=== PATIENT | female | born 1970 | race Two or more races ===

== ENCOUNTER 2024-12-08 14:22 | Inpatient (IN) | payer MEDICAID, OTHER ==
[~2024-12-08] VITALS: Ht 162.6 cm; Wt 68.1 kg
--- NOTE | 2024-12-08 14:46 | ED.PDOC ---
HPI (NEURO) HPI Comments 53-year-old female who presents to the ED for chief complaint of dizziness. Patient states she has been having dizziness with the associated blurred vision for the past three weeks. Patient states she saw PCP one month prior and and states she was told to stay off her feet for the next month and not do any work. Patient now in the ED states she has a history of diabetes and has noted Accu- Chek of 413 and 393. Patient does state she is compliant with her medications. Patient in the ED otherwise is alert and oriented x4 and able to answering all questions. Patient in the ED has not above pressure 159/84 with otherwise stable vitals. Patient otherwise denies any other symptoms. Chief Complaint: Dizziness Time Seen by MD: 14:43 Reviewed Notes: Medications, Allergies Information Source: Patient Mode of Arrival: Ambulatory Past Medical History PAST MEDICAL HISTORY: DM Surgical History: Denies all surgeries MANAGER LEARNING History: Denies all MANAGER LEARNING Hx Family History Family History: Reviewed,noncontributory to illness Social History Smoker: Non-Smoker Alcohol: Denies ETOH Use Drugs: Denies Drug Use Lives In: Home Constitutional: denies: chills, diaphoresis, fatigue, fever, malaise, sweats, weakness, others EENTM: reports: blurred vision; denies: double vision, ear bleeding, ear discharge, ear drainage, ear pain, ear ringing, eye pain, eye redness, hearing loss, mouth pain, mouth swelling, nasal discharge, nose bleeding, nose conges tion, nose pain, photophobia, tearing, throat pain, throat swelling, voice changes, others Respiratory: denies: cough, hemoptysis, orthopnea, SOB at rest, shortness of breath, SOB with excertion, stridor, wheezing, others Cardiovascular: denies: chest pain, dizzy spells, diaphoresis, Dyspnea on exertion, edema, irregular heart beat, left arm pain, lightheadedness, palpitations, PND, syncope, others Gastrointestinal: denies: abdomen distended, abdominal pain, blood streaked bowels, constipated, diarrhea, dysphagia, difficulty swallowing, hematemesis, melena, nausea, poor appetite, poor fluid intake, rectal bleeding, rectal pain, vomiting, others Genitourinary: denies: abnormal vagina bleeding, burning, dyspareunia, dysuria, flank pain, frequency, hematuria, incontinence, pain, , vagina disc harge, urgency, others Neurological: reports: dizziness; denies: fainting, headache, left sided numbness, left sided weakness, numbness, paresthesia, pre-existing deficit, right sided numbness, right sided weakness, seizure, speech problems, tingling, tremors, weakness, others Musculoskeletal: denies: back pain, gout, joint pain, joint swelling, muscle pain, muscle stiffness, neck pain, others Integumetry: denies: bruises, change in color, change in hair/nails, dryness, laceration, lesions, lumps, rash, wounds, others Allergic/Immunocompromised: denies: Difficulty Healing, Frequent Infections, Hives, Itching, others Hematologic/Lymphatic: denies: anemia, blood clots, easy bleeding, easy bruising, swollen glands, others Endocrine: denies: excessive hunger, excessive sweating, excessive thirst, excessive urination, flushing, intolerance to cold, intolerance to heat, unexplained weight gain, unexplained weight loss, others Psychiatric: denies: anxiety, bipolar disorder, depression, hopeless, panic disorder, schizophrenia, sleepless, suicidal, others All Other Systems: Reviewed and Negative Physical Exam General Appearance: Moderate Distress HEENT: Normal ENT Inspection, Pharynx Normal, TMs Normal Neck: Full Range of Motion, Non-Tender, Normal, Normal Inspection Respiratory: Chest Non-Tender, Lungs Clear, No Accessory Muscle Use, No Respiratory Distress, Normal Breath Sounds Cardiovascular: No Edema, No JVD, No Murmur, No Gallop, Normal Peripheral Pulse s, Regular Rate/Rhythm Breast Exam: Deferred Gastrointestinal: No Organomegaly, Non Tender, No Pulsatile Mass, Normal Bowel Sounds, Soft Genitalia: Deferred Pelvic: Deferred Rectal: Deferred Extremities: No calf tenderness, Normal capillary refill, Normal inspection, Normal range of motion, Non-tender, No pedal edema Musculoskeletal : Apperance: Normal 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 Was a procedure done?: No Differential Diagnosis (SZ) Seizure: Psychogenic Seizure, Closed Head Injury, CVA/TIA General Weakness: Anemia, Dehydration, Electrolyte imbalance, Hypotension, Labyrinthitis, Meniere's disease, Vertigo: central, Vertigo: peripheral, V estibular neuronitis, Other (Uncontrolled diabetes, hypertension,) X-Ray, Labs, Meds, VS Vital Signs Date Time Temp Pulse Resp B/P (MAP) Pulse Ox O2 Delivery O2 Flow Rate FiO2 12/08/24 14:36 81 12/08/24 14:23 98.9 86 16 159/84 97 98.9 Lab Test 12/08/24 15:13 Range/Units White Blood Count 6.3 4.4-10.8 10^3/uL Red Blood Count 4.03 4.0-5.20 10^6/uL Hemoglobin 12.7 12.2-16.2 g/dL Hematocrit 37.5 36.0-46.0 % Mean Corpuscular Volume 92.9 80.0-100.0 fL Mean Corpuscular Hemoglobin 31.4 28.0-32.0 pg Mean Corpuscular Hemoglobin Concent 33.8 32.0-36.0 g/dL Red Cell Distribution Width 13.2 11.8-14.3 % Platelet Count 182 140-450 10^3/uL Mean Platelet Volume 11.3 H 6.9-10.8 fL Neutrophils (%) (Auto) 54.4 37.0-80.0 % Lymphocytes (%) (Auto) 38.6 10.0-50.0 % Monocytes (%) (Auto) 4.0 0.0-12.0 % Eosinophils (%) (Auto) 2.5 0.0-7.0 % Basophils (%) (Auto) 0.5 0.0-2.0 % Neutrophils # (Auto) 3.4 1.6-8.6 10 ^3/uL Lymphocytes # (Auto) 2.4 0.4-5.4 10 ^3/uL Monocytes # (Auto) 0.2 0-1.3 10 ^3/uL Eosinophils # (Auto) 0.2 0-0.8 10 ^3/uL Basophils # (Auto) 0 0-0.2 10 ^3/uL Nucleated Red Blood Cells 0.1 % Sodium Level 137 136-145 mmol/L Potassium Level 4.3 3.5-5.1 mmol/L Chloride Level 100 98-107 mmol/L Carbon Dioxide Level 31 20-31 mmol/L Anion Gap 6 5-15 Blood Urea Nitrogen 19 9-23 mg/dL Creatinine 0.68 0.550-1.02 mg/dL Glomerular Filtration Rate Calc 105 >90 mL/min BUN/Creatinine Ratio 27.9 H 10.0-20.0 Serum Glucose 385 H 74-106 mg/dL Calcium Level 9.9 8.7-10.4 mg/dL Current Medications Medications (Trade) Dose Ordered Sig/Antonio Route Start Time Stop Time Status Last Admin Sodium Chloride 1,000 ml @ 1,000 mls/hr Q1H ONCE IV 12/08/24 15:00 12/08/24 15:59 DC 12/08/24 15:28 Patient alert. Complaining of dizziness. Vitals stable. Answering questions. Serum glucose elevated. Establish intravenous access. Was given fluids. Was given insulin. WBC within normal limits. Hemoglobin within normal limits. Blood pressure slightly elevated. Possibly need MRI. Explained to the patient. Continue monitoring. Time of 1ST Reevaluation: 15:15 Reevaluation 1ST: Unchanged Patient Education/Counseling: Diagnosis, Treatment Family Education/Counseling: No Family Present Departure 1 Departure Time of Disposition: 17:12 Impression: Primary Impression: Autonomic disorder Additional Impressions: HTN (hypertension) Qualified Codes: I10 - Essential (primary) hypertension Uncontrolled diabetes mellitus Qualified Codes: E13.65 - Other specified diabetes mellitus with hyperglycemia Disposition: ADMITTED INPATIENT Admit to: Med Surg Condition: Guarded Critical Care Note Critical Care Time?: No Stability Stability form required: No Heart Score Heart Score: Heart Score Response (Comments) Value History N/A 0 EKG N/A 0 Age N/A 0 Risk Factors N/A 0 Troponin N/A 0 Total 0 I personally scribed for ANKIT HUBER MD ([email or web address]) on 12/08/24 at 14:46. Electronically submitted by Allison Garcia ([email or web address]). ANKIT HUBER MD Dec 08, 2024 14:46
[2024-12-08] MEDS: SODIUM CHLORIDE 0.9% 1,000 ML IV ONE ×2 (15:28→21:30)
[2024-12-08 15:30] LABS: Hematocrit 37.5 % (36.0-46.0); Hemoglobin 12.7 g/dL (12.2-16.2); Mean Corpuscular Hemoglobin 31.4 pg (28.0-32.0); Mean Corpuscular Volume 92.9 fL (80.0-100.0); Nucleated Red Blood Cells % 0.1 %
[2024-12-08 15:36] LABS: Chloride 100 mmol/L (98-107); Potassium 4.3 mmol/L (3.5-5.1); Sodium 137 mmol/L (136-145)
[2024-12-08 15:37] LABS: Anion Gap 6 (5-15); Calcium 9.9 mg/dL (8.7-10.4); Carbon Dioxide 31 mmol/L (20-31)
[2024-12-08 15:42] LABS: BUN/Creatinine Ratio 27.9 (10.0-20.0); Blood Urea Nitrogen 19 mg/dL (9-23)
[2024-12-08 15:43] LABS: Glucose 385 mg/dL (74-106)
--- NOTE | 2024-12-08 16:48 | ECG ---
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
--- NOTE | 2024-12-08 17:39 | DVH ---
CLINICAL HISTORY: dizzy TECHNIQUE: Helical scanning was performed of the head from the skull base to the vertex. Multiplanar reconstructions were performed. This exam was performed according to our departmental dose optimizat ion program. Up-to-date CT equipment and radiation dose reduction techniques are utilized as appropri ate. CTDI 57 DLP 1015 COMPARISON: None FINDINGS: There is no evidence for acute intracranial hemorrhage, acute ischemic changes, mass, mass effect, or extra-axial fluid collection. There is no hydrocephalus or midline shift. There is no effacement of the cerebral sulci and basal subarachnoid cisterns. The tilley-white matter differentiation is well savanah ntained. The imaged paranasal sinuses are clear. There has been bilateral cataract extraction. IMPRESSION: NO ACUTE INTRACRANIAL ABNORMALITY SEEN.
[2024-12-08 18:05] LABS: Urine Protein, UAD Negative (Negative)
[2024-12-08] MEDS ORDERED: ACETAMINOPHEN 325 MG TAB PO PRN (21:30)
[2024-12-08] MEDS ORDERED: ONDANSETRON HCL 4 MG/2 ML VIAL IV PRN (21:30)
[2024-12-08] MEDS ORDERED: DEXTROSE (50%) 50ML SYRG IV PRN (21:30)
--- NOTE | 2024-12-08 22:29 | DVH ---
CHEST RADIOGRAPH Indication: chest pain Technique: 1 view Comparison: None FINDINGS: Lines and Tubes: None. Lungs/Pleura: No focal consolidation, pleural effusion or pneumothorax. Cardiomediastinum: Normal heart size. Right hilar calcifications. Other: No acute osseous abnormality. IMPRESSION: 1. No acute cardiopulmonary abnormality.
[2024-12-08 22:33] LABS: Alanine Aminotransferase 28 U/L (7-40); Albumin 4.3 g/dL (3.2-4.8); Alkaline Phosphatase 83 U/L (46-116); Magnesium 1.9 mg/dL (1.6-2.6); Total Protein 7.5 g/dL (5.7-8.2)
[2024-12-08 22:34] LABS: Bilirubin, Total 0.5 mg/dL (0.2-1.0); HDL Cholesterol 50 mg/dL (40-59)
[2024-12-08 22:36] LABS: Bilirubin, Direct < 0.1 mg/dL (<0.3); Cholesterol 280 mg/dL (< 200); Triglycerides 424 mg/dL (< 150)
--- NOTE | 2024-12-08 22:47 | DVH ---
CLINICAL HISTORY: dizziness TECHNIQUE: Orr-scale, Color and Duplex Doppler imaging of the bilateral carotid systems was performe d. COMPARISON: None Findings: Right Carotid system: There is no plaque present in the right carotid system. Left Carotid system: There is no plaque present in the left carotid system. The following flow velocities were obtained (cm/sec). Right Carotid System: ICA PSV: 93 cm/sec ICA PDV: 34 cm/sec ICA/CCA Ratio: 1.7 Left Carotid System: ICA PSV: 90 cm/sec ICA PDV: 34 cm/sec ICA/CCA Ratio: 1.5 The right and left common carotid and external carotid arteries are patent. There is antegrade flow i n both vertebral arteries and external carotid arteries. IMPRESSION: NORMAL RIGHT CAROTID SYSTEM. NORMAL LEFT CAROTID SYSTEM. Estimation of carotid stenosis is based on velocity parameters that correlate the residual internal c arotid diameter with that of the more distal vessel in accordance with the [place] Symptomatic Carotid Endarterectomy Trial (NASCET).
[2024-12-08 22:56] LABS: Thyroid Stimulating Hormone 1.84 uIU/mL (0.55-4.78)
[2024-12-08 22:57] LABS: Beta HCG, Quantitative 1.1 mIU/mL (1.5-4.2)
[2024-12-08] MEDS: INSULIN LANTUS (GLARGINE) 1 /0.01ml (100units/ml) SC ONE (23:00)
[2024-12-08] MEDS: SODIUM CHLOR 0.9% PF (SALINE LOCK) 10ML VIAL/SYR IV SCH (23:00)
[2024-12-08 23:15] VITALS: PULSE 69; RESP 14; O2SAT 95
--- NOTE | 2024-12-08 23:34 | DVHHPRES ---
History of Present Illness Resident Creating Document: DENNIS REDMOND History of Present Illness Patient is a 53-year-old female with past medical history of T2DM, presented to [facility] ED with complaint of dizziness. The patient reports experiencing dizziness accompanied by blurred vision for the past three weeks. The patient has a 20-year history of diabetes mellitus and is currently taking insulin Lantus, 30 units in the morning and 30 units at night. She also notes that since testing positive for COVID-19 in 2022, her glucose levels have remained elevated. Additionally, she began experiencing watery diarrhea two weeks ago. Despite reporting compliance with her medications, her symptoms have worsened. On evaluation in the ED, patient is afebrile, blood pressure is 159/84, and heart rate is 106, with otherwise stable vital signs. Initial labs show serum glucose 385 and BUN/Cr 27.9. Head CT shows no acute intracranial abnormalities seen. The patient was started on Insulin and IV fluids. Patient is admitted for further evaluation and management. Endocrine: Diabetes Past Surgical History Cataract surgery Family History: None Smoke: # pack years ALCOHOL: none Drugs: None Lives: with Family Review of Systems Review of Systems Constitutional: Dizziness, Blurred vision Eyes: No Pain, No Vision change, No Conjunctivae inflammation, No Eyelid inflammation, No Other, No Redness ENT: No Ear pain, No Ear discharge, No Nose pain, No Nose discharge, No Nose congestion, No Mouth pain, No Mouth swelling, No Throat pain, No Throat swelling, No Other Cardiovascular: No Chest Pain, No Palpitations, No Orthopnea, No Paroxysmal No Dyspnea, No Edema, No Lt Headedness, No Other Respiratory: No Cough, No Dry, No Shortness of breath, No SOB with exertion, No Wheezing, No Hemoptysis, No Pleuritic Pain, No Sputum, No Other Gastrointestinal: No Nausea, No Vomiting, No Abdominal Pain, No Diarrhea, No Constipation, No Melena, No Hematochezia, No Other Genitourinary: No Dysuria, No Frequency, No Incontinence, No Hematuria, No Retention, No Other Musculoskeletal: No other, No neck pain, No shoulder pain, No arm pain, No back pain, No hand pain, No leg pain, No foot pain Skin: No Rash, No Lesions, No Jaundice, No Bruising, No Other Allergies: Coded Allergies: NO KNOWN ALLERGIES (Unverified , 12/08/24) Medications Current Medications Medications Dose Ordered Sig/Antonio Route Start Time Stop Time Status Last Admin Dose Admin Sodium Chloride 10 ml Q8HR IV 12/08/24 22:00 12/08/24 23:00 10 ML Ondansetron HCl 4 mg Q4HP PRN IV 12/08/24 21:30 Acetaminophen 650 mg Q6HP PRN PO 12/08/24 21:30 Diagnostic Test (Pha) 1 strip Q6HR 12/09/24 00:00 Insulin Human Regular Q6HR SC 12/09/24 00:00 Dextrose 50 ml UD PRN IV 12/08/24 21:30 Insulin Glargine 20 units DAILY@1000 SC 12/09/24 10:00 Exam Vital Signs Vital Signs Date Time Temp Pulse Resp B/P (MAP) Pulse Ox O2 Delivery O2 Flow Rate FiO2 12/08/24 23:15 98.6 73 14 136/61 (86) 95 98.6 12/08/24 23:15 Room Air* 0 21 Labs/Xrays Labs Test 12/08/24 17:37 12/08/24 15:13 Range/Units Urine Color Light-yellow Yellow Urine Clarity Clear Clear Urine pH 7.0 5.0-9.0 Urine Specific [place] 1.028 1.001-1.035 Urine Protein Negative Negative Urine Ketones Negative Negative Urine Blood Negative Negative /uL Urine Nitrite 1+ H Negative Urine Bilirubin Negative Negative Urine Urobilinogen Normal Negative mg/dL Urine Leukocyte Esterase Negative Negative /uL Urine RBC <1 0 - 4 /hpf Urine Microscopic WBC 5 0-5 /HPF Urine Squamous Epithelial Cells Few <5 /hpf Urine Bacteria Few H None Seen /hpf Urine Glucose 4+ H Normal mg/dL White Blood Count 6.3 4.4-10.8 10^3/uL Red Blood Count 4.03 4.0-5.20 10^6/uL Hemoglobin 12.7 12.2-16.2 g/dL Hematocrit 37.5 36.0-46.0 % Mean Corpuscular Volume 92.9 80.0-100.0 fL Mean Corpuscular Hemoglobin 31.4 28.0-32.0 pg Mean Corpuscular Hemoglobin Concent 33.8 32.0-36.0 g/dL Red Cell Distribution Width 13.2 11.8-14.3 % Platelet Count 182 140-450 10^3/uL Mean Platelet Volume 11.3 H 6.9-10.8 fL Neutrophils (%) (Auto) 54.4 37.0-80.0 % Lymphocytes (%) (Auto) 38.6 10.0-50.0 % Monocytes (%) (Auto) 4.0 0.0-12.0 % Eosinophils (%) (Auto) 2.5 0.0-7.0 % Basophils (%) (Auto) 0.5 0.0-2.0 % Neutrophils # (Auto) 3.4 1.6-8.6 10 ^3/uL Lymphocytes # (Auto) 2.4 0.4-5.4 10 ^3/uL Monocytes # (Auto) 0.2 0-1.3 10 ^3/uL Eosinophils # (Auto) 0.2 0-0.8 10 ^3/uL Basophils # (Auto) 0 0-0.2 10 ^3/uL Nucleated Red Blood Cells 0.1 % Sodium Level 137 136-145 mmol/L Potassium Level 4.3 3.5-5.1 mmol/L Chloride Level 100 98-107 mmol/L Carbon Dioxide Level 31 20-31 mmol/L Anion Gap 6 5-15 Blood Urea Nitrogen 19 9-23 mg/dL Creatinine 0.68 0.550-1.02 mg/dL Glomerular Filtration Rate Calc 105 >90 mL/min BUN/Creatinine Ratio 27.9 H 10.0-20.0 Serum Glucose 385 H 74-106 mg/dL Calcium Level 9.9 8.7-10.4 mg/dL Magnesium Level 1.9 1.6-2.6 mg/dL Total Bilirubin 0.5 0.2-1.0 mg/dL Direct Bilirubin < 0.1 <0.3 mg/dL Aspartate Amino Transferase (AST) 25 13-40 U/L Alanine Aminotransferase (ALT) 28 7-40 U/L Alkaline Phosphatase 83 46-116 U/L Total Protein 7.5 5.7-8.2 g/dL Albumin 4.3 3.2-4.8 g/dL Triglycerides Level 424 H < 150 mg/dL Cholesterol Level 280 H < 200 mg/dL LDL Cholesterol < 100 mg/dL HDL Cholesterol 50 40-59 mg/dL Thyroid Stimulating Hormone (TSH) 1.84 0.55-4.78 uIU/mL Beta HCG, Quantitative 1.1 L 1.5-4.2 mIU/mL SEPSIS Sepsis Screen Date sepsis recognized/suspect: Dec 08, 2024 Time Sepsis recognized/suspect: 3 Recent Procedure: No On Antibiotic Therapy: No Respiratory Rate >20: No Heart Rate >90: No Temp<36 C (96.8 F) or >38.3 C: No SBP <90 or MAP <65 mmHG: No New Acute Mental Status Change: No Is the patient on CPAP, BIPAP,: No Physician Orders Admit (12/08/24:) Allergies (12/08/24:) Code Status (12/08/24:) Sodium Chloride Lock (Saline Lock Ns) (12/08/24 22:00) Ondansetron Hcl (Zofran) (12/08/24:) Complete Blood Count (12/09/24 04:00) Comprehensive Metabolic Panel (12/09/24 04:00) Cardiac Diet-2gna,Lofat,Lochol (12/09/24 Breakfast) Echo 2d Mode Cardiac Dop (12/08/24:) Condition: Fair (12/08/24:29) Acetaminophen Tablet (Tylenol Tablet) (12/08/24 21:30) Stat Ekg For Chest Pain (12/08/24:) Notify Md Of Changes From Base (12/08/24:) Manager Division For 24 Hours (12/08/24 21:29) Emergency Dysrhythmia Protocol (12/08/24 21:29) Rhythm Strips Once Every Shift (12/08/24 21:29) Drug Screen (12/08/24:29) Carotid Duplx W Color Dop (12/08/24:29) Osmolality, Serum (12/08/24:) Beta-Hydroxybutyrate (12/08/24:29) Glucose Blood (Accu-Chek Comfort Curve T (12/09/24 00:00) Insulin R (Human) (Insulin R) (12/09/24 00:00) Dextrose 50% Syringe (12/08/24 21:30) Sodium Chloride 0.9% (12/08/24 21:30) Chest Xray 1 View (12/08/24:29) Insulin Lantus (Glargine) (Lantus) (12/09/24 10:00) Vital Signs Date Time Temp Pulse Resp B/P (MAP) Pulse Ox O2 Delivery O2 Flow Rate FiO2 12/08/24 23:15 98.6 73 14 136/61 (86) 95 98.6 12/08/24 23:15 69 14 95 Room Air* 0 21 Laboratory Tests Test 12/08/24 15:13 White Blood Count 6.3 10^3/uL (4.4-10.8) Medications Medications Dose Ordered Sig/Antonio Route Start Time Stop Time Status Last Admin Dose Admin Insulin Glargine 20 units ONCE ONCE SC 12/08/24 21:30 12/08/24 22:14 DC 12/08/24 23:00 20 UNITS Sodium Chloride 10 ml Q8HR IV 12/08/24 22:00 12/08/24 23:00 10 ML Sodium Chloride 1,000 ml @ 100 mls/hr Q10H ONCE IV 12/08/24 21:30 12/09/24 07:29 12/08/24 23:00 100 MLS/HR Sodium Chloride 1,000 ml @ 1,000 mls/hr Q1H ONCE IV 12/08/24 15:00 12/08/24 15:59 DC 12/08/24 15:28 1,000 MLS/HR Assessment/Plan Assessment/Plan Hyperosmolar hyperglycemic state Type 2 diabetes mellitus with hyperglycemia, uncontrolled Dizziness and blurred vision due to above Echocardiogram pending Head CT: no acute intracranial abnormalities seen Carotid Doppler ultrasound: normal left/right carotid cyst Chest x-ray: no acute cardiopulmonary abnormality Acetaminophen 650 mg p.o. q.6h p.r.n. Insulin Lantus 20 units SC daily Moderate sliding scale insulin Zofran 4mg IV q4h IV NS 100 MLS/HR one Diet: cardiac Goals of care: Full code, discussed for >30 minutes on 12/08/24 Plan discussed with patient Plan discussed with Dr. Rodrigues Plan discussed with: Patient My Orders Orders - DENNIS REDMOND Procedure Category Date Status Time Admit ADMIT 12/08/24 Transmitted 21:29 Allergies JERMAINE 12/08/24 In Process 21:29 Code Status CODE 12/08/24 Transmitted 21:29 Sodium Chloride Lock PHA 12/08/24 In Process (Saline Lock Ns) 22:00 Ondansetron Hcl PHA 12/08/24 In Process (Zofran) 21:30 Complete Blood Count LAB 12/09/24 Verified 04:00 Comprehensive LAB 12/09/24 Verified Metabolic Panel 04:00 Cardiac DIET 12/09/24 Transmitted Diet-2gna,Lofat,Lochol Breakfast Echo 2d Mode Cardiac US 12/08/24 Logged DOP 21:29 Condition: Fair JERMAINE 12/08/24 In Process 21:29 Acetaminophen Tablet PHA 12/08/24 In Process (Tylenol Tablet) 21:30 Stat Ekg For Chest JERMAINE 12/08/24 In Process Pain 21:29 Notify Of Changes JERMAINE 12/08/24 In Process From Base 21:29 Manager Division For JERMAINE 12/08/24 In Process 24 Hours 21:29 Emergency Dysrhythmia JERMAINE 12/08/24 In Process Protocol 21:29 Rhythm Strips Once JERMAINE 12/08/24 In Process Every Shift 21:29 Drug Screen LAB 12/08/24 Logged 21:29 Carotid Duplx W Color US 12/08/24 Resulted DOP 21:29 Osmolality, Serum LAB 12/08/24 In Process 21:29 Beta-Hydroxybutyrate LAB 12/08/24 In Process 21:29 Glucose Blood PHA 12/09/24 In Process (Accu-Chek Comfort 00:00 Insulin R (Human) PHA 12/09/24 In Process (Insulin R) 00:00 Dextrose 50% Syringe PHA 12/08/24 In Process 21:30 Sodium Chloride 0.9% PHA 12/08/24 In Process 21:30 Chest Xray 1 View XY 12/08/24 Resulted 21:29 Insulin Lantus PHA 12/09/24 In Process (Glargine) (Lantus) 10:00 Date of Service: Dec 08, 2024 Billing Provider: KATHY RODRIGUES MD Common Visit Codes: [id number] INP/OBS CARE (HIGH) Secondary Visit Codes: [id number] CARE PLAN 30 MINUTES DENNIS REDMOND RESIDENT Dec 08, 2024 23:34
[2024-12-09] VITALS (9 sets, daily range): BP systolic 101–140; BP diastolic 0–90; PULSE 69–81; RESP 14–18; TEMP 97.4–98.6; O2SAT 91–100
[2024-12-09] MEDS: InsuLIN REG 1unit/0.01ml Soln (100units/ml) SC SCH
[2024-12-09] MEDS: ACCU-CHEK COMFORT CURVE STRIP VI SCH
[2024-12-09] MEDS ORDERED: INSLANTI SC (00:46)
[2024-12-09] MEDS ORDERED: METF-372 PO (00:46)
[2024-12-09 01:32] LABS: Amphetamine Screen, Urine Neg (NEGATIVE); Barbiturate Scree,Urine Neg (NEGATIVE); Benzodiazephine Screen, Urine Neg (NEGATIVE); Cannabinoid Screen, Urine Neg (NEGATIVE); Cocaine Screen, Urine Neg (NEGATIVE); Opiate Scree,Urine Neg (NEGATIVE); Phencyclidine Screen, Urine Neg (NEGATIVE)
[2024-12-09 06:56] LABS: Hematocrit 38.3 % (36.0-46.0); Hemoglobin 13.0 g/dL (12.2-16.2); Mean Corpuscular Hemoglobin 31.6 pg (28.0-32.0); Mean Corpuscular Volume 93.2 fL (80.0-100.0); Nucleated Red Blood Cells % 0.1 %
[2024-12-09 07:14] LABS: Alanine Aminotransferase 24 U/L (7-40); Alkaline Phosphatase 76 U/L (46-116); Anion Gap 12 (5-15); BUN/Creatinine Ratio 22.2 (10.0-20.0); Blood Urea Nitrogen 12 mg/dL (9-23); Calcium 9.5 mg/dL (8.7-10.4); Carbon Dioxide 29 mmol/L (20-31); Chloride 104 mmol/L (98-107); Sodium 145 mmol/L (136-145); Total Protein 7.4 g/dL (5.7-8.2)
[2024-12-09 07:15] LABS: Albumin 4.2 g/dL (3.2-4.8); Bilirubin, Total 0.6 mg/dL (0.2-1.0)
[2024-12-09 07:16] LABS: Glucose 60 mg/dL (74-106); Potassium 3.0 mmol/L (3.5-5.1)
[2024-12-09] MEDS ORDERED: INSULIN LANTUS (GLARGINE) 1 /0.01ml (100units/ml) SC SCH (10:00)
[2024-12-09] MEDS: POTASSIUM EFFERVESENT TAB 25 MEQ PO ONE (10:25)
--- NOTE | 2024-12-09 13:39 | DVHPN2 ---
Reviewed: Care Plan, H&P, Labs, Medications, Previous Orders, Radiology Changes from previous H/P or p: No Changes Objective Vitals Vital Signs Date Time Temp Pulse Resp B/P (MAP) Pulse Ox O2 Delivery O2 Flow Rate FiO2 12/09/24 13:00 98.6 80 18 114/66 (82) 97 98.6 12/09/24 08:00 Room Air* 0 21 Intake/Output Intake and Output 12/09/24 07:00 Intake Total 200 ml Balance 200 ml Intake Oral 200 ml Medications Current Medications Medications Dose Ordered Sig/Antonio Route Start Time Stop Time Status Last Admin Dose Admin Sodium Chloride 10 ml Q8HR IV 12/08/24 22:00 12/09/24 05:12 10 ML Ondansetron HCl 4 mg Q4HP PRN IV 12/08/24 21:30 Acetaminophen 650 mg Q6HP PRN PO 12/08/24 21:30 Diagnostic Test (Pha) 1 strip Q6HR 12/09/24 00:00 12/09/24 11:17 1 STRIP Insulin Human Regular Q6HR SC 12/09/24 00:00 12/09/24 11:20 12 UNITS Dextrose 50 ml UD PRN IV 12/08/24 21:30 Laboratory Results Laboratory Tests 12/09/24 05:02 12/09/24 10:56 Chemistry Test 12/08/24 15:13 12/09/24 05:02 Albumin 4.3 g/dL (3.2-4.8) 4.2 g/dL (3.2-4.8) Calcium Level 9.9 mg/dL (8.7-10.4) 9.5 mg/dL (8.7-10.4) Magnesium Level 1.9 mg/dL (1.6-2.6) Total Protein 7.5 g/dL (5.7-8.2) 7.4 g/dL (5.7-8.2) Lipid panel Test 12/08/24 15:13 Cholesterol Level 280 mg/dL (< 200) H HDL Cholesterol 50 mg/dL (40-59) Triglycerides Level 424 mg/dL (< 150) H LFT Test 12/08/24 15:13 12/09/24 05:02 Alanine Aminotransferase (ALT) 28 U/L (7-40) 24 U/L (7-40) Alkaline Phosphatase 83 U/L (46-116) 76 U/L (46-116) Aspartate Amino Transferase (AST) 25 U/L (13-40) 23 U/L (13-40) Direct Bilirubin < 0.1 mg/dL (<0.3) Total Bilirubin 0.5 mg/dL (0.2-1.0) 0.6 mg/dL (0.2-1.0) HgA1c, TSH Test 12/08/24 15:13 12/09/24 05:02 Thyroid Stimulating Hormone (TSH) 1.84 uIU/mL (0.55-4.78) Hemoglobin A1c 12.6 % A1C (<5.7) H Urinalysis Test 12/08/24 17:37 Urine Color Light-yellow (Yellow) Urine Clarity Clear (Clear) Urine pH 7.0 (5.0-9.0) Urine Specific [place] 1.028 (1.001-1.035) Urine Protein Negative (Negative) Urine Ketones Negative (Negative) Urine Blood Negative /uL (Negative) Urine Nitrite 1+ (Negative) H Urine Bilirubin Negative (Negative) Urine Urobilinogen Normal mg/dL (Negative) Urine Leukocyte Esterase Negative /uL (Negative) Urine RBC <1 /hpf (0 - 4) Urine Microscopic WBC 5 /HPF (0-5) Urine Squamous Epithelial Cells Few /hpf (<5) Urine Bacteria Few /hpf (None Seen) H Urine Glucose 4+ mg/dL (Normal) H Labs and/or images reviewed: Labs reviewed by me, Image(s) reviewed by me Assessment/Plan Assessment/Plan Acute Hyperosmolar hyperglycemic state Controlled Type 2 diabetes mellitus with hyperglycemia, insulin moderate sliding scale Lantus 30 units HS Dizziness and blurred vision due to above Acute dehydration: IV fluids Plan discussed with: Patient My Orders Orders - FAY HDZ MD Procedure Category Date Status Time Insulin Lantus PHA 12/09/24 Verified (Glargine) (Lantus) 22:00 Date of Service: Dec 09, 2024 Billing Provider: FAY HDZ MD Common Visit Codes: [id number] INP/OBS CARE(HIGH) FAY HDZ MD Dec 09, 2024 13:39
[2024-12-09] MEDS: INSULIN LANTUS (GLARGINE) 1 /0.01ml (100units/ml) SC SCH (22:00)
[2024-12-10 01:00] VITALS: BP 116/66; PULSE 72; RESP 16; TEMP 96.9; O2SAT 97
[2024-12-10 05:00] VITALS: BP 129/76; PULSE 67; RESP 16; TEMP 97.3; O2SAT 98
[2024-12-10 06:55] LABS: Hematocrit 36.4 % (36.0-46.0); Hemoglobin 12.6 g/dL (12.2-16.2); Mean Corpuscular Hemoglobin 32.0 pg (28.0-32.0); Mean Corpuscular Volume 92.4 fL (80.0-100.0); Nucleated Red Blood Cells % 0.1 %
[2024-12-10 07:08] LABS: Alanine Aminotransferase 23 U/L (7-40); Albumin 3.8 g/dL (3.2-4.8); Alkaline Phosphatase 68 U/L (46-116); Anion Gap 9 (5-15); BUN/Creatinine Ratio 21.6 (10.0-20.0); Bilirubin, Total 0.7 mg/dL (0.2-1.0); Blood Urea Nitrogen 11 mg/dL (9-23); Calcium 9.3 mg/dL (8.7-10.4); Carbon Dioxide 27 mmol/L (20-31); Chloride 106 mmol/L (98-107); Glucose 98 mg/dL (74-106); Sodium 142 mmol/L (136-145); Total Protein 6.7 g/dL (5.7-8.2)
[2024-12-10 07:10] LABS: Potassium 3.4 mmol/L (3.5-5.1)
[2024-12-10 08:00] VITALS: PULSE 71; PULSE 74; RESP 16; O2SAT 97
[2024-12-10 08:44] VITALS: BP 120/68; PULSE 74; RESP 16; TEMP 97.6; O2SAT 97
--- NOTE | 2024-12-10 19:16 | DVHSR ---
APPROVED REPORT EXAM: Two-dimensional and M-mode echocardiogram with Doppler and color Doppler. Blood Pressure: 101/57 mmHg INDICATION Chest Pain RISK FACTORS Height: 5'4", Weight: 150 DIMENSIONS LVDd4.0 (3.8-5.7cm)LA (2D)3.6 (1.9-4.0cm)Aortic Root2.6 (2.0-3.7cm) LVDs2.0 (2.5-4.0cm)LA (MM) (1.9-4.0cm)Aortic Cusp Exc1.6 (1.5-2.0cm) EF (%) 82.0 (55-70%)Rt. Atrium3.0 (1.9-4.0cm)Asc. Aorta2.7 cm IVSd1.1 (0.7-1.1cm)RV (D)3.5 (1.8-2.4cm) PWd0.4 (0.7-1.1cm) Mitral Valve MitralMitral Stenosis E wave0.82m/sMV Mean GR.mmHg A wave0.80m/sMV Peak GR.mmHg E/A ratio1.02D MVAcm2 DECEL [id number] 1/2 [place] Aortic Valve Aortic ValveAortic Stenosis V11.17m/Rocael Mean GR.5mmHg V21.48m/Rocael Peak GR.9mmHg LVOT Diameter1.8 (1.8-2.4cm)Doppler AVA2.01cm2 Pulmonic Valve V20.98m/s Tricuspid Valve TR Velocity2.36m/s [id number] Conclusion Sinus rhythm. Concentric LVH. Valves are normal. Left ventricular function is preserved at 60% with normal RV function. Dopplers unremarkable. No pericardial effusion masses or vegetations.
--- NOTE | 2024-12-11 11:06 | DVHPN2 ---
Reviewed: Care Plan, H&P, Labs, Medications, Previous Orders, Radiology Changes from previous H/P or p: No Changes Objective Vitals Vital Signs Date Time Temp Pulse Resp B/P (MAP) Pulse Ox O2 Delivery O2 Flow Rate FiO2 12/10/24 08:44 97.6 74 16 120/68 (85) 97 97.6 12/09/24 20:00 Room Air* 0 21 Intake/Output Intake and Output 12/10/24 07:00 Intake Total 1900 ml Output Total 100 ml Balance 1800 ml Intake Oral 1900 ml Output Urine Total 100 ml # Voids 2 Medications Current Medications Medications Dose Ordered Sig/Antonio Route Start Time Stop Time Status Last Admin Dose Admin Sodium Chloride 10 ml Q8HR IV 12/08/24 22:00 12/10/24 05:47 10 ML Ondansetron HCl 4 mg Q4HP PRN IV 12/08/24 21:30 Acetaminophen 650 mg Q6HP PRN PO 12/08/24 21:30 Diagnostic Test (Pha) 1 strip Q6HR 12/09/24 00:00 12/10/24 05:54 1 STRIP Insulin Human Regular Q6HR SC 12/09/24 00:00 12/10/24 00:03 6 UNITS Dextrose 50 ml UD PRN IV 12/08/24 21:30 Insulin Glargine 30 units HS FL 12/09/24 22:00 12/09/24 22:00 30 UNITS Laboratory Results Laboratory Tests 12/10/24 05:52 Chemistry Test 12/10/24 05:52 Albumin 3.8 g/dL (3.2-4.8) Calcium Level 9.3 mg/dL (8.7-10.4) Total Protein 6.7 g/dL (5.7-8.2) LFT Test 12/10/24 05:52 Alanine Aminotransferase (ALT) 23 U/L (7-40) Alkaline Phosphatase 68 U/L (46-116) Aspartate Amino Transferase (AST) 20 U/L (13-40) Total Bilirubin 0.7 mg/dL (0.2-1.0) Urinalysis Test 12/08/24 17:37 Urine Color Light-yellow (Yellow) Urine Clarity Clear (Clear) Urine pH 7.0 (5.0-9.0) Urine Specific [place] 1.028 (1.001-1.035) Urine Protein Negative (Negative) Urine Ketones Negative (Negative) Urine Blood Negative /uL (Negative) Urine Nitrite 1+ (Negative) H Urine Bilirubin Negative (Negative) Urine Urobilinogen Normal mg/dL (Negative) Urine Leukocyte Esterase Negative /uL (Negative) Urine RBC <1 /hpf (0 - 4) Urine Microscopic WBC 5 /HPF (0-5) Urine Squamous Epithelial Cells Few /hpf (<5) Urine Bacteria Few /hpf (None Seen) H Urine Glucose 4+ mg/dL (Normal) H Labs and/or images reviewed: Labs reviewed by me, Image(s) reviewed by me Assessment/Plan Assessment/Plan Acute Hyperosmolar hyperglycemic state Uncontrolled Type 2 diabetes mellitus with hyperglycemia, insulin moderate sliding scale Lantus 30 units HS Dizziness and blurred vision due to above, CT head negative carotid ultrasound negative, echocardiogram result pending but patient wants to go home Acute dehydration: IV fluids MAK George at bedside Plan discussed with: Patient My Orders Orders - FAY HDZ MD Procedure Category Date Status Time Insulin Lantus PHA 12/09/24 In Process (Glargine) (Lantus) 22:00 Date of Service: Dec 10, 2024 Billing Provider: FAY HDZ MD Common Visit Codes: [id number] INP/OBS CARE(HIGH) FAY HDZ MD Dec 10, 2024 09:58
--- NOTE | 2024-12-11 11:06 | DVHDS2 ---
Discharge Summary Date of Admission Dec 08, 2024 at 21:29 Date of Discharge: Dec 10, 2024 Admitting Diagnosis Blurry vision dizziness Wounds: None Labs/Diagnostic Data: Laboratory Results Test 12/10/24 05:52 12/10/24 05:51 12/09/24 05:02 12/08/24 17:37 White Blood Count 5.3 10^3/uL (4.4-10.8) Red Blood Count 3.94 10^6/uL (4.0-5.20) Hemoglobin 12.6 g/dL (12.2-16.2) Hematocrit 36.4 % (36.0-46.0) Mean Corpuscular Volume 92.4 fL (80.0-100.0) Mean Corpuscular Hemoglobin 32.0 pg (28.0-32.0) Mean Corpuscular Hemoglobin Concent 34.6 g/dL (32.0-36.0) Red Cell Distribution Width 13.0 % (11.8-14.3) Platelet Count 171 10^3/uL (140-450) Mean Platelet Volume 11.3 fL (6.9-10.8) Neutrophils (%) (Auto) 41.6 % (37.0-80.0) Lymphocytes (%) (Auto) 49.0 % (10.0-50.0) Monocytes (%) (Auto) 5.5 % (0.0-12.0) Eosinophils (%) (Auto) 3.0 % (0.0-7.0) Basophils (%) (Auto) 0.9 % (0.0-2.0) Neutrophils # (Auto) 2.2 10 ^3/uL (1.6-8.6) Lymphocytes # (Auto) 2.6 10 ^3/uL (0.4-5.4) Monocytes # (Auto) 0.3 10 ^3/uL (0-1.3) Eosinophils # (Auto) 0.2 10 ^3/uL (0-0.8) Basophils # (Auto) 0 10 ^3/uL (0-0.2) Nucleated Red Blood Cells 0.1 % Sodium Level 142 mmol/L (136-145) Potassium Level 3.4 mmol/L (3.5-5.1) Chloride Level 106 mmol/L (98-107) Carbon Dioxide Level 27 mmol/L (20-31) Anion Gap 9 (5-15) Blood Urea Nitrogen 11 mg/dL (9-23) Creatinine 0.51 mg/dL (0.550-1.02) Glomerular Filtration Rate Calc 112 mL/min (>90) BUN/Creatinine Ratio 21.6 (10.0-20.0) Serum Glucose 98 mg/dL (74-106) Calcium Level 9.3 mg/dL (8.7-10.4) Total Bilirubin 0.7 mg/dL (0.2-1.0) Aspartate Amino Transferase (AST) 20 U/L (13-40) Alanine Aminotransferase (ALT) 23 U/L (7-40) Alkaline Phosphatase 68 U/L (46-116) Total Protein 6.7 g/dL (5.7-8.2) Albumin 3.8 g/dL (3.2-4.8) POC Glucose 115 mg/dl (70-106) Hemoglobin A1c 12.6 % A1C (<5.7) Urine Color Light-yellow (Yellow) Urine Clarity Clear (Clear) Urine pH 7.0 (5.0-9.0) Urine Specific [place] 1.028 (1.001-1.035) Urine Protein Negative (Negative) Urine Ketones Negative (Negative) Urine Blood Negative /uL (Negative) Urine Nitrite 1+ (Negative) Urine Bilirubin Negative (Negative) Urine Urobilinogen Normal mg/dL (Negative) Urine Leukocyte Esterase Negative /uL (Negative) Urine RBC <1 /hpf (0 - 4) Urine Microscopic WBC 5 /HPF (0-5) Urine Squamous Epithelial Cells Few /hpf (<5) Urine Bacteria Few /hpf (None Seen) Urine Glucose 4+ mg/dL (Normal) Urine Opiates Screen Neg (NEGATIVE) Urine Fentanyl Screen Neg (NEGATIVE) Urine Barbiturates Screen Neg (NEGATIVE) Urine Phencyclidine Screen Neg (NEGATIVE) Urine Amphetamines Screen Neg (NEGATIVE) Urine Benzodiazepines Screen Neg (NEGATIVE) Urine Cocaine Screen Neg (NEGATIVE) Urine Cannabinoids Screen Neg (NEGATIVE) Test 12/08/24 15:13 Serum Osmolality 310 mOsm/kg (278-298) Magnesium Level 1.9 mg/dL (1.6-2.6) Direct Bilirubin < 0.1 mg/dL (<0.3) Triglycerides Level 424 mg/dL (< 150) Cholesterol Level 280 mg/dL (< 200) LDL Cholesterol mg/dL (< 100) HDL Cholesterol 50 mg/dL (40-59) Beta-Hydroxybutyric Acid 0.156 mmol/L (< 0.4) Thyroid Stimulating Hormone (TSH) 1.84 uIU/mL (0.55-4.78) Beta HCG, Quantitative 1.1 mIU/mL (1.5-4.2) Other Laboratory Tests 12/10/24 05:52 Brief Hx & Hospital Course: 63-year-old female insulin-dependent diabetes ran out of insulin for a few days and came to the ER and admitted for dizziness and blurry vision. CT head negative carotid ultrasound negative chest x-ray negative echocardiogram result pending. Blood sugars five now controlled with the insulin. Acute dehydration resolved with the IV fluids patient feels better and wants to go home she does not want to wait for the echocardiogram result. Prescription for Lantus and Humalog [facility] by handwritten prescription Consults/Reason for consult none Operations or Procedures CT head Carotid ultrasound Chest x-ray Echocardiogram Condition at Discharge: Fair Final Diagnosis/Problems List Acute Hyperosmolar hyperglycemic state Uncontrolled Type 2 diabetes mellitus with hyperglycemia, insulin moderate sliding scale Lantus 30 units HS Dizziness and blurred vision due to above, CT head negative carotid ultrasound negative, echocardiogram result pending but patient wants to go home Acute dehydration: IV fluids Discharge Disposition: Home Discharge Instruct/Medications Diet: Consistent carbohydrate Activity: Light activity Follow Up/Referral: Check blood sugar 3 times a day and take insulin accordingly Medications: Lantus Humalog [facility] to [facility] handwritten prescription Scheduled Insulin Glargine (Lantus), 30 UNIT SC BID, (Reported) Metformin Hydrochloride (Metformin Hcl), 1,000 MG PO DAILY, (Reported) Discharge Statement: "Patient was advised to return to the ER or call 911 if any headaches, dizziness, shortness of breath, chest pain, abdominal pain, bleeding, fevers, or worsening of medical condition. Patient was counseled about treatment plan, medications, possible side effects, patientverbalized understanding. All questions were answered to the best of my ability. This discharge took greater then 30 minutes in planning, reviewing documentation, counseling the patient, and discussing with other team members." ASSESSMENT ASSESSMENT Hospital Course Improved Assessment Acute Hyperosmolar hyperglycemic state Uncontrolled Type 2 diabetes mellitus with hyperglycemia, insulin moderate sliding scale Lantus 30 units HS Dizziness and blurred vision due to above, CT head negative carotid ultrasound negative, echocardiogram result pending but patient wants to go home Acute dehydration: IV fluids Date of Service: Dec 10, 2024 Billing Provider: FAY HDZ MD Common Visit Codes: [id number] DISCH DAY >30min FAY HDZ MD Dec 10, 2024 10:02
== END 2024-12-10 11:45 | disposition home or self-care (01) | DRG 420 ==
LOC: ER 14:22 → OVERFLOW 21:29 → TELE-WESTW 23:44
PROVIDERS: ADMIT Family Medicine; ATTEND Family Medicine
DX: E11.00 Type 2 diabetes mellitus with hyperosmolarity without nonketotic hyperglycemic-hyperosmolar coma (NKHHC) (principal); G90.89 Other disorders of autonomic nervous system; E86.0 Dehydration; Z79.4 Long term (current) use of insulin; I10 Essential (primary) hypertension; Z91.148 Patient's other noncompliance with medication regimen for other reason; Z79.899 Other long term (current) drug therapy
CPT/HCPCS: 36415; 70450; 71045; 80048; 80053; 80061; 80076; 80307; 81001; 82010; 82962; 83036; 83735; 83930; 84132; 84443; 84702; 85025; 93005; 93306; 93886; 96360; G0378; J1815

== ENCOUNTER → 2025-02-10 | Outpatient (CLI) | payer MEDICAID ==
[~2025-02-10] MED LIST: INSLANTI SC; METF-372 PO
[2025-02-10 12:04] LABS: Alanine Aminotransferase 23 U/L (7-40); Alkaline Phosphatase 75 U/L (46-116); Anion Gap 7 (5-15); BUN/Creatinine Ratio 16.7 (10.0-20.0); Blood Urea Nitrogen 10 mg/dL (9-23); Calcium 9.6 mg/dL (8.7-10.4); Carbon Dioxide 29 mmol/L (20-31); Chloride 107 mmol/L (98-107); Potassium 4.0 mmol/L (3.5-5.1); Sodium 143 mmol/L (136-145); Total Protein 7.5 g/dL (5.7-8.2); Triglycerides 111 mg/dL (< 150)
[2025-02-10 12:05] LABS: Albumin 4.5 g/dL (3.2-4.8); Bilirubin, Total 0.7 mg/dL (0.2-1.0); HDL Cholesterol 50 mg/dL (40-59)
[2025-02-10 12:09] LABS: Cholesterol 211 mg/dL (< 200); Glucose 123 mg/dL (74-106)
[2025-02-10 12:10] LABS: Hematocrit 39.3 % (36.0-46.0); Hemoglobin 13.2 g/dL (12.2-16.2); Mean Corpuscular Hemoglobin 30.8 pg (28.0-32.0); Mean Corpuscular Volume 91.8 fL (80.0-100.0); Nucleated Red Blood Cells % 0.0 %
[2025-02-10 13:20] LABS: Hepatitis A Total Antibody Positive (Negative); Hepatitis B Surface Antigen Negative (Negative); Hepatitis C Antibody Negative (Negative)
== END | disposition home or self-care (01) ==
LOC: LAB 11:13
PROVIDERS: ATTEND Licensed Practical Nurse
DX: E11.69 Type 2 diabetes mellitus with other specified complication (principal); E55.9 Vitamin D deficiency, unspecified; R53.0 Neoplastic (malignant) related fatigue; Z13.1 Encounter for screening for diabetes mellitus; Z00.01 Encounter for general adult medical examination with abnormal findings; Z12.11 Encounter for screening for malignant neoplasm of colon; Z13.29 Encounter for screening for other suspected endocrine disorder
CPT/HCPCS: 36415; 80053; 80061; 82043; 82274; 82306; 82607; 82746; 83036; 84443; 85025; 86704; 86706; 86708; 86803; 87340